=== PATIENT | female | born 1965 | race Caucasian/White ===

== ENCOUNTER 2020-10-23 13:47 | Outpatient (CLI) | payer BC | END 2020-10-23 13:48 | disposition home or self-care (01) | LOC: DTY/OP 13:47 | PROVIDERS: ATTEND Family Medicine | DX: Z68.41 Body mass index [BMI] 40.0-44.9, adult (principal) | CPT/HCPCS: 97802 ==

== ENCOUNTER 2020-11-26 10:53 | Outpatient (CLI) | payer BC | END 2020-11-26 10:54 | disposition home or self-care (01) | LOC: DTY/OP 10:53 | PROVIDERS: ATTEND Surgery | DX: E66.01 Morbid (severe) obesity due to excess calories (principal) | CPT/HCPCS: 97802 ==

== ENCOUNTER 2020-12-12 09:26 | Outpatient (CLI) | payer BC ==
[2020-12-12 10:12] LABS: #Basophils 0.1 10x3/uL (0.0-0.2); #Eosinphils 0.1 10x3/uL (0.0-0.5); #Monocytes 0.4 10x3/uL (0.0-1.1); #Neutrophils 4.1 10x3/uL (1.5-8.4); %Basophils 0.7 % (0.0-2.0); %Eosinophils 1.6 % (0.0-6.0); %Lymphocytes 33.1 % (18.0-47.0); %Monocytes 5.1 % (0.0-10.0); %Neutrophils 59.4 % (40.0-75.0); Hemoglobin 14.3 g/dL (12.0-15.5); Mean Corpuscular HGB CONC 32.2 g/dL (32.0-36.0); Mean Corpuscular Hemoglobin 29.4 pg (27.0-33.0); Mean Corpuscular Volume 91.4 fl (81.6-98.3); Mean Platelet Volume 10.1 fl (7.4-10.4); Platelet Count 302 10x3/uL (150-450); Red Blood Cell (RBC) Count 4.86 10x6/uL (3.90-5.03); White Blood Cell (WBC) Count 6.9 10x3/uL (3.5-10.5)
[2020-12-12 11:08] LABS: ALT (SGPT) 35 U/L (8-55); AST (SGOT) 23 U/L (5-34); Albumin 4.3 g/dL (3.5-5.0); Alkaline Phosphatase 89 U/L (40-110); Anion Gap 12 mmol/L (10-20); BUN (Urea Nitrogen) 16 mg/dL (9.8-20.1); Bilirubin, Total 0.6 mg/dL (0.2-1.2); Calc. Creatinine Clearance 0 mL/min (70-130); Calcium 9.5 mg/dL (7.8-10.44); Carbon Dioxide 26 mmol/L (22-29); Chloride 107 mmol/L (98-107); Globulin 2.8 g/dL (2.4-3.5); Glucose 103 mg/dL (70-105); Potassium 4.4 mmol/L (3.5-5.1); Protein, Total 7.1 g/dL (6.0-8.3); Sodium 141 mmol/L (136-145)
[2020-12-12 14:09] LABS: Hemoglobin A1c 5.1 % (4.0-6.0)
[2020-12-13 00:56] LABS: SARS-CoV-2 PCR by NAA Not Detected (NotDetected)
== END 2020-12-12 09:27 | disposition home or self-care (01) ==
LOC: LABBT 09:26
PROVIDERS: ATTEND Surgery
DX: Z01.818 Encounter for other preprocedural examination (principal); E66.01 Morbid (severe) obesity due to excess calories; Z20.822 Contact with and (suspected) exposure to COVID-19
CPT/HCPCS: 71046; 80053; 83036; 85025; 87635; U0003; U0005

== ENCOUNTER 2020-12-17 06:59 | Inpatient (IN) | payer OTHER ==
[2020-12-12 10:48] VITALS: BMI 42.3
[2020-12-17] MEDS ORDERED: Fentanyl 100 MCG/2 ML VIAL ONE ×2 (07:05→10:46)
[2020-12-17] MEDS ORDERED: Levofloxacin 500 mg/D5W 100 ml Premix Bag ONE (07:20)
[2020-12-17] MEDS ORDERED: Heparin 5,000 UNITS/ML VIAL ONE (07:25)
[2020-12-17] MEDS ORDERED: Lidocaine 1% w/Epinephrine 1:100K 20 ML VIAL ONE (07:44)
[2020-12-17] MEDS ORDERED: Bupivacaine 0.25% HCL 30 ML VIAL ONE (07:44)
[2020-12-17] MEDS ORDERED: Midazolam HCl 2 mg/2 ml Vial ONE (07:59)
[2020-12-17] MEDS ORDERED: Scopolamine 1.5 mg/72 hour Patch ONE (07:59)
[2020-12-17] MEDS ORDERED: Lidocaine 1% PF 5 ML VIAL ONE (09:10)
[2020-12-17] MEDS ORDERED: PROPOFOL 200 MG/20 ML VIAL ONE (09:10)
[2020-12-17] MEDS ORDERED: Dexamethasone 20 MG/5 ML VIAL ONE (09:10)
[2020-12-17] MEDS ORDERED: Rocuronium Bromide 10 MG/ML (10ML VIAL) ONE (09:10)
[2020-12-17] MEDS ORDERED: Ketorolac Tromethamine 30 MG/ML VIAL ONE (09:10)
[2020-12-17] MEDS ORDERED: Glycopyrrolate 0.2 MG/ML 5 ML SYRINGE ONE (09:10)
[2020-12-17] MEDS ORDERED: PHENYLEPHRINE-NS 100 MCG/ML 10 ML SYRINGE ONE (09:10)
[2020-12-17] MEDS ORDERED: ePHEDrine Sulfate 50 MG/10 ML VIAL ONE (09:10)
[2020-12-17] MEDS ORDERED: Ondansetron PF 4 MG/2 ML Vial ONE ×2 (09:10→10:50)
[2020-12-17] MEDS ORDERED: Ondansetron HCl/PF 4 MG/2 ML Vial IVP PRN (09:50)
[2020-12-17] MEDS ORDERED: Promethazine HCl 25 MG/ML VIAL SLOW IVP PRN (09:50)
[2020-12-17] MEDS ORDERED: Meperidine HCl/PF 25 MG/ML VIAL SLOW IVP PRN (09:50)
[2020-12-17] MEDS ORDERED: HYDROmorphone 2 MG/ML VIAL SLOW IVP PRN (09:50)
[2020-12-17] MEDS ORDERED: HYDROmorphone 2 MG/ML VIAL ONE (10:46)
[2020-12-17] MEDS ORDERED: Hydrocodone-Acetamin 15 ML UDCUP PO PRN (10:50)
[2020-12-17] MEDS ORDERED: hydrALAZINE 20 MG/ML VIAL SLOW IVP PRN (10:50)
[2020-12-17] MEDS ORDERED: diphenhydrAMINE 50 MG/ML VIAL IVP PRN (10:50)
[2020-12-17] MEDS ORDERED: Promethazine HCl 25 MG/ML VIAL IM PRN ×2 (10:50→11:46)
[2020-12-17] MEDS ORDERED: Promethazine HCl 25 MG/ML VIAL ONE (10:50)
[2020-12-17] MEDS ORDERED: Ondansetron PF 4 MG/2 ML Vial IVP PRN ×2 (10:50→11:46)
[2020-12-17] MEDS ORDERED: Dextrose 50% Abboject 50 ML SYRINGE SLOW IVP PRN (10:50)
[2020-12-17] MEDS ORDERED: Dextrose 5% in Water 1,000 ML IV PRN (10:50)
[2020-12-17] MEDS ORDERED: Naloxone HCl 0.4 mg/ml Vial IV PRN (11:46)
[2020-12-17] MEDS ORDERED: diphenhydrAMINE 25 MG CAP PO PRN (11:46)
[2020-12-17] MEDS ORDERED: fentaNYL Citrate/PF 2,000 MCG in Sodium Chloride 0.9% 60 ML IV PRN (11:46)
[2020-12-17] MEDS ORDERED: diphenhydrAMINE 50 MG/ML VIAL IM PRN (11:46)
[2020-12-17] MEDS ORDERED: Zolpidem Tartrate 5 MG TAB PO PRN (11:46)
[2020-12-17] MEDS ORDERED: Communication Order-Pharmacy FS SCH (12:00)
[2020-12-17] MEDS ORDERED: D5 1/2 NS w/20 mEq KCL 1,000 ML ONE (13:26)
[2020-12-17] MEDS: D5 1/2 NS w/20 mEq KCL 1,000 ML IV SCH ×2 (18:21→21:14)
[2020-12-17] MEDS ORDERED: Enoxaparin Sodium 40 MG/0.4 ML SYRINGE SC SCH (21:00)
[2020-12-18] MEDS: diphenhydrAMINE 50 MG/ML VIAL IVP PRN ×2 (03:22→06:29)
[2020-12-18] MEDS: D5 1/2 NS w/20 mEq KCL 1,000 ML IV SCH ×2 (03:38→05:30)
[2020-12-18 05:39] LABS: #Lymphocytes 1.5 thou/uL (1.20-3.40); #Monocytes 0.7 thou/uL (0.11-0.59); #Neutrophils 9.6 thou/uL (1.40-6.50); %Eosinophils 0.1 % (0.0-10.0); %Lymphocytes 12.6 % (21.0-51.0); %Monocytes 5.5 % (0.0-10.0); %Neutrophils 81.8 % (42.0-75.0); Hemoglobin 12.2 g/dL (12.0-16.0); Mean Corpuscular Hemoglobin 30.8 pg (27.0-31.0); Mean Corpuscular Volume 93.1 fL (78.0-98.0); Mean Platelet Volume 8.1 fL (7.4-10.4); Platelet Count 249 thou/uL (130-400); RBC Distribution Width 11.5 % (11.5-14.5); Red Blood Cell (RBC) Count 3.98 mill/uL (4.20-5.40); White Blood Cell (WBC) Count 11.8 thou/uL (4.8-10.8)
[2020-12-18 06:02] LABS: Anion Gap 12 mmol/L (10-20); BUN (Urea Nitrogen) 9 mg/dL (9.8-20.1); Calc. Creatinine Clearance 160 mL/min (70-130); Calcium 8.7 mg/dL (7.8-10.44); Carbon Dioxide 24 mmol/L (22-29); Chloride 105 mmol/L (98-107); Glucose 127 mg/dL (70-105); Potassium 4.2 mmol/L (3.5-5.1); Sodium 137 mmol/L (136-145)
[2020-12-18 08:04] VITALS: BP 123/72; TEMP 98.4
[2020-12-18] MEDS ORDERED: Pantoprazole 40 MG VIAL IVP SCH (09:00)
[2020-12-18] MEDS ORDERED: Hydrocodone-Acetamin 15 ML UDCUP PO PRN (10:01)
== END 2020-12-18 14:19 | disposition home or self-care (01) | DRG 621 ==
LOC: SDC 06:59 → SURG A 10:51
PROVIDERS: ADMIT Surgery; ATTEND Surgery
PROC: 0DB64Z3 Excision of Stomach, Percutaneous Endoscopic Approach, Vertical (ICD-10-PCS; principal; 2020-12-17)
DX: E66.01 Morbid (severe) obesity due to excess calories (principal); M19.90 Unspecified osteoarthritis, unspecified site; Z98.51 Tubal ligation status; Z90.710 Acquired absence of both cervix and uterus; Z88.0 Allergy status to penicillin; Z68.41 Body mass index [BMI] 40.0-44.9, adult
CPT/HCPCS: 36415; 80048; 85025; 88307; 94760; C9113; J1100; J1170; J1200; J1644; J1650; J1885; J1956; J2250; J2405; J2550; J2704; J3010; J3480; S0020

== ENCOUNTER 2022-04-09 23:12 | Inpatient (IN) | payer BC ==
[2022-04-10] MEDS ORDERED: Acetaminophen 325 MG TAB PO PRN (00:53)
[2022-04-10] MEDS ORDERED: Pantoprazole 40 MG VIAL IVP SCH (01:30)
[2022-04-10] MEDS: Lactated Ringer's 1,000 ML IV SCH ×2 (01:31→09:03)
[2022-04-10] MEDS: Ondansetron PF 4 MG/2 ML Vial IVP PRN ×2 (01:41→13:48)
[2022-04-10 01:50] VITALS: BMI 36.1
[2022-04-10] MEDS ORDERED: Morphine 4 MG/ML VIAL SLOW IVP PRN (02:09)
[2022-04-10] MEDS: Ketorolac Tromethamine 30 MG/ML VIAL IVP PRN ×3 (04:09→19:09)
[2022-04-10] MEDS ORDERED: Simethicone Chewable 80 MG TAB PO PRN (04:49)
[2022-04-10] MEDS ORDERED: Simethicone 40 MG/0.6 ML Drop 30 ML BOT PO PRN (04:49)
[2022-04-10 05:36] LABS: #Lymphocytes 1.3 thou/uL (1.20-3.40); #Monocytes 0.4 thou/uL (0.11-0.59); #Neutrophils 7.5 thou/uL (1.40-6.50); %Basophils 0.1 % (0.0-1.0); %Eosinophils 0.2 % (0.0-10.0); %Lymphocytes 14.4 % (21.0-51.0); %Monocytes 3.9 % (0.0-10.0); %Neutrophils 81.4 % (42.0-75.0); Hemoglobin 12.6 g/dL (12.0-16.0); Mean Corpuscular HGB CONC 32.9 g/dL (32.0-36.0); Mean Corpuscular Hemoglobin 31.4 pg (27.0-31.0); Mean Corpuscular Volume 95.2 fL (78.0-98.0); Mean Platelet Volume 7.9 fL (7.4-10.4); Platelet Count 233 thou/uL (130-400); RBC Distribution Width 10.8 % (11.5-14.5); Red Blood Cell (RBC) Count 4.03 mill/uL (4.20-5.40); White Blood Cell (WBC) Count 9.2 thou/uL (4.8-10.8)
[2022-04-10 05:49] LABS: ALT (SGPT) 116 U/L (8-55); AST (SGOT) 163 U/L (5-34); Albumin 3.9 g/dL (3.5-5.0); Alkaline Phosphatase 106 U/L (40-110); Anion Gap 11 mmol/L (10-20); BUN (Urea Nitrogen) 15 mg/dL (9.8-20.1); Bilirubin, Total 0.6 mg/dL (0.2-1.2); Calc. Creatinine Clearance 139 mL/min (70-130); Calcium 8.7 mg/dL (7.8-10.44); Carbon Dioxide 24 mmol/L (22-29); Chloride 106 mmol/L (98-107); Estimated GFR 94; Globulin 2.6 g/dL (2.4-3.5); Glucose 121 mg/dL (70-105); Lipase 19 U/L (8-78); Potassium 4.1 mmol/L (3.5-5.1); Protein, Total 6.5 g/dL (6.0-8.3); Sodium 137 mmol/L (136-145)
[2022-04-10] MEDS: Pantoprazole 40 MG VIAL IVP SCH (08:57)
[2022-04-10] MEDS ORDERED: Enoxaparin Sodium 40 MG/0.4 ML SYRINGE SC SCH (21:00)
[2022-04-10] MEDS ORDERED: RIMEGEPANT SULFATE 75 MG PO PRN (23:58)
[2022-04-11] MEDS: Lactated Ringer's 1,000 ML IV SCH ×3 (03:00→09:32)
[2022-04-11 05:40] LABS: #Lymphocytes 1.8 thou/uL (1.20-3.40); #Monocytes 0.6 thou/uL (0.11-0.59); %Basophils 0.3 % (0.0-1.0); %Eosinophils 0.4 % (0.0-10.0); %Lymphocytes 15.5 % (21.0-51.0); %Monocytes 4.9 % (0.0-10.0); Hemoglobin 13.1 g/dL (12.0-16.0); Mean Corpuscular HGB CONC 33.2 g/dL (32.0-36.0); Mean Corpuscular Hemoglobin 32.1 pg (27.0-31.0); Mean Corpuscular Volume 96.5 fL (78.0-98.0); Platelet Count 228 thou/uL (130-400); RBC Distribution Width 10.9 % (11.5-14.5); Red Blood Cell (RBC) Count 4.08 mill/uL (4.20-5.40); White Blood Cell (WBC) Count 11.4 thou/uL (4.8-10.8)
[2022-04-11 06:02] LABS: ALT (SGPT) 150 U/L (8-55); AST (SGOT) 125 U/L (5-34); Albumin 4.1 g/dL (3.5-5.0); Alkaline Phosphatase 149 U/L (40-110); Anion Gap 14 mmol/L (10-20); BUN (Urea Nitrogen) 7 mg/dL (9.8-20.1); Calc. Creatinine Clearance 135 mL/min (70-130); Calcium 9.2 mg/dL (7.8-10.44); Carbon Dioxide 25 mmol/L (22-29); Chloride 102 mmol/L (98-107); Estimated GFR 91; Globulin 2.9 g/dL (2.4-3.5); Glucose 120 mg/dL (70-105); Potassium 3.7 mmol/L (3.5-5.1); Sodium 137 mmol/L (136-145)
[2022-04-11] MEDS: Ondansetron PF 4 MG/2 ML Vial IVP PRN (06:02)
[2022-04-11] MEDS ORDERED: Bupivacaine HCl 0.5%/Epinephrine 1:200,000/PF 30 ml Vial ONE (06:58)
[2022-04-11] MEDS ORDERED: Iopamidol 15 ML ONE (06:58)
[2022-04-11] MEDS ORDERED: fentaNYL Citrate/PF 100 MCG/2 ML SYRINGE ONE (07:31)
[2022-04-11] MEDS ORDERED: Famotidine/PF 20 mg/2ml Vial ONE (07:32)
[2022-04-11] MEDS ORDERED: SUGAMMADEX SODIUM 200 MG/2 ML VIAL ONE (07:32)
[2022-04-11] MEDS ORDERED: Clindamycin/D5W 900 mg/50 ml Premix Bag ONE (07:54)
[2022-04-11] MEDS ORDERED: Ondansetron PF 4 MG/2 ML Vial ONE (08:17)
[2022-04-11] MEDS ORDERED: PROPOFOL 200 MG/20 ML VIAL ONE (08:17)
[2022-04-11] MEDS ORDERED: Rocuronium Bromide 10 MG/ML (10ML VIAL) ONE (08:17)
[2022-04-11] MEDS ORDERED: Lidocaine 1% MPF 2 ML VIAL ONE (08:17)
[2022-04-11] MEDS ORDERED: Metoclopramide HCl 10 MG/2 ML VIAL ONE (08:17)
[2022-04-11] MEDS ORDERED: Dexamethasone 20 MG/5 ML VIAL ONE (08:17)
[2022-04-11] MEDS ORDERED: Phenylephrine 10 MG/ML VIAL ONE (08:17)
[2022-04-11] MEDS ORDERED: Ketorolac Tromethamine 30 MG/ML VIAL ONE (08:17)
[2022-04-11] MEDS: Pantoprazole 40 MG VIAL IVP SCH (09:32)
[2022-04-11] MEDS ORDERED: HYDROcodone/Acetaminophen 5/325 mg Tablet PO PRN ×2 (10:14)
[2022-04-11] MEDS ORDERED: Morphine 4 MG/ML VIAL SLOW IVP PRN ×2 (10:14→10:26)
[2022-04-11] MEDS ORDERED: metroNIDAZOLE 500 MG in Premix Bag 1 BAG IVPB SCH (11:00)
[2022-04-11 15:48] VITALS: BP 128/74; TEMP 98.1
== END 2022-04-11 15:59 | disposition home or self-care (01) | DRG 419 ==
LOC: SJJU 04-10 00:06 → OBSVTOIN 04-10 00:50
PROVIDERS: ADMIT Student in an Organized Health Care Education/Training Program; ATTEND Student in an Organized Health Care Education/Training Program
PROC: 0FT44ZZ Resection of Gallbladder, Percutaneous Endoscopic Approach (ICD-10-PCS; principal; 2022-04-11)
PROC: BF502Z0 Other Imaging of Bile Ducts using Fluorescing Agent, Intraoperative (ICD-10-PCS; 2022-04-11)
DX: K80.00 Calculus of gallbladder with acute cholecystitis without obstruction (principal); E66.9 Obesity, unspecified; G43.909 Migraine, unspecified, not intractable, without status migrainosus; Z20.822 Contact with and (suspected) exposure to COVID-19; K83.8 Other specified diseases of biliary tract; Z79.899 Other long term (current) drug therapy; Z98.51 Tubal ligation status; Z90.710 Acquired absence of both cervix and uterus; Z88.0 Allergy status to penicillin; Z68.36 Body mass index [BMI] 36.0-36.9, adult
CPT/HCPCS: 36415; 47532; 76705; 80053; 83690; 85025; 87811; 88304; C1713; C9113; J1100; J1610; J1885; J2270; J2370; J2405; J2704; J2765; J3490; J7120; Q9967; S0028